=== PATIENT | female | born 1960 | race Caucasian/White ===

== ENCOUNTER 2018-09-23 12:46 | Emergency (ER) | payer OTHER, SELFPAY ==
[2018-09-23 13:01] VITALS: BP 139/86; PULSE 84; RESP 20; TEMP 37.2; O2SAT 99
--- NOTE | 2018-09-23 13:10 | ED.ABDPAIN ---
HPI - Abdominal Pain <LYNDSAY Lanier - Last Filed: 09/23/18 21:51> General Chief Complaint: Abdominal Pain Stated Complaint: bloating, terrible abd rt sided pain Time Seen by Provider: 09/23/18 13:10 Source: patient Mode of arrival: ambulatory Limitations: no limitations History of Present Illness HPI narrative: 58-year-old female with history of hyperlipidemia and is an everyday smoker here for complaint of pain into her right upper quadrant and also to her bilateral lower quadrants for the past week. She was concerned for pulled muscle however symptoms have not resolved. Her last bowel movement was a couple of days ago. She does feel like she may be constipated as well. She denies any fevers. No urinary symptoms. Positive p.o. intake. She denies any trauma to the abdomen. She was seen at primary care office today and was sent to the emergency room for further evaluation. she denies any stressors or relievers of her discomfort. Related Data Home Medications Medication Instructions Recorded Confirmed aspirin 81 mg PO QDAY #0 05/14/13 09/23/18 Fish Oil 1 dose PO DAILY 09/23/18 09/23/18 glucosamine zeng 2KCl-chondroit 1 dose PO DAILY 09/23/18 09/23/18 [Glucosamine Sulf-Chondroitin] multivitamin 1 tab PO DAILY 09/23/18 09/23/18 simvastatin 10 mg PO QPM 09/23/18 09/23/18 Previous Rx's Medication Instructions Recorded estradiol 0.05 mg/24 hr weekly 1 patch TOPICAL QWEEK #12 patch 06/01/18 transdermal patch ciprofloxacin HCl 500 mg PO BID #14 tab 09/23/18 hydrocodone-acetaminophen 1 tab PO Q4-6H PRN #15 tab 09/23/18 metronidazole 500 mg PO TID #21 tab 09/23/18 nicotine 1 patch TRANSDERMAL DAILY #56 patch 09/23/18 ondansetron 4 mg PO Q6-8H PRN #10 tab 09/23/18 Allergies Allergy/AdvReac Type Severity Reaction Status Date / Time No Known Drug Allergies Allergy Unverified 05/07/18 14:24 Review of Systems <LYNDSAY Lanier - Last Filed: 09/23/18 21:51> Review of Systems All systems reviewed & are unremarkable except as noted in HPI and below Constitutional Denies chills, Denies fever(s), Denies lethargy and Denies weakness Eyes Denies change in vision, Denies eye discharge, Denies irritation and Denies loss of vision ENT Ears, Nose, Mouth, and Throat: Denies change in voice, Denies neck pain and Denies sore throat Cardiovascular Denies chest pain, Denies irregular heart rhythm, Denies lightheadedness, Denies palpitations, Denies dyspnea, Denies dyspnea on exertion and Denies orthopnea Respiratory Denies cough, Denies dyspnea, Denies dyspnea on exertion and Denies wheezing Gastrointestinal Gastrointestinal: Reports abdominal pain and Reports constipation Genitourinary Denies hematuria, Denies flank pain, Denies urinary incontinence and Denies urinary urgency Musculoskeletal Denies neck pain Integumentary/Breasts Denies pruritus, Denies erythema, Denies rash and Denies wounds Neurologic Denies loss of vision and Denies weakness Endocrine Denies palpitations Hematologic/Lymphatic Denies easy bruising Allergic/Immunologic Denies wheezing Exam <LYNDSAY Lanier - Last Filed: 09/23/18 21:51> Initial Vital Signs Initial Vital Signs: Vital Signs Temperature 99.0 F 09/23/18 13:01 Pulse Rate 84 09/23/18 13:01 Respiratory Rate 20 09/23/18 13:01 Blood Pressure 139/86 09/23/18 13:01 Pulse Oximetry 99 09/23/18 13:01 Const General: cooperative and well developed Nutritional Appearance: well nourished Orientation: alert, awake, oriented x3 and not confused [facility] Mouth: oral mucosae normal and moist mucous membranes Eyes Conjunctivae: conjunctivae normal Sclera: sclerae normal Pupils: PERRL EOM: EOM intact bilaterally Resp Effort & Inspection: normal respiratory effort, able to speak in complete sentences, no respiratory distress and no use of accessory muscles Auscultation: clear to auscultation bilaterally, no rales, no rhonchi and no wheezes Cardio Rate: regular rate Rhythm: regular rhythm Heart Sounds: no click, no gallops, no murmurs and no rubs Pulses: normal peripheral pulses GI Inspection: non-distended Palpation: soft, no hepatosplenomegaly, No guarding, No pulsatile mass and tender Auscultation: normal bowel sounds Other: Tenderness on palpation to the right upper quadrant. Slight discomfort on palpation to bilateral lower quadrants. General: No CVA tenderness Skin General: no rashes or lesions noted, No jaundice and No petechiae Neuro General: alert, oriented x3, gait normal and no focal motor deficits Speech: speech normal <Taiwo Canales DO - Last Filed: 09/27/18 07:12> Initial Vital Signs Initial Vital Signs: Vital Signs Temperature 99.0 F 09/23/18 13:01 Pulse Rate 84 09/23/18 13:01 Respiratory Rate 20 09/23/18 13:01 Blood Pressure 139/86 09/23/18 13:01 Pulse Oximetry 99 09/23/18 13:01 Course <LYNDSAY Lanier - Last Filed: 09/23/18 21:51> Orders Ordered: Discontinued Medications Hydromorphone HCl (Dilaudid) 0.5 mg IV NOW ONE Stop: 09/23/18 13:17 Last Admin: 09/23/18 14:39 Dose: 0.5 mg Sodium Chloride (Normal Saline 0.9%) 1,000 mls @ 150 mls/hr IV CONT SANDEEP Last Infusion: 09/23/18 17:15 Dose: 0 mls/hr Admin: 09/23/18 14:39 Dose: 150 mls/hr Piperacillin/Tazobactam/Dextrose (Zosyn) 3.375 gm in 50 mls @ 100 mls/hr IV NOW ONE Stop: 09/23/18 16:11 Last Infusion: 09/23/18 16:21 Dose: 0 mls/hr Admin: 09/23/18 15:51 Dose: 100 mls/hr Ondansetron HCl (Zofran) 4 mg IV NOW ONE Stop: 09/23/18 13:17 Last Admin: 09/23/18 14:40 Dose: 4 mg Vital Signs - 8 hr 09/23/18 14:24 09/23/18 16:49 Pulse Rate 81 79 Respiratory Rate 16 16 Blood Pressure [Right Arm] 126/93 H 112/82 Pulse Oximetry 100 <Taiwo Canales DO - Last Filed: 09/27/18 07:12> Orders Ordered: Discontinued Medications Hydromorphone HCl (Dilaudid) 0.5 mg IV NOW ONE Stop: 09/23/18 13:17 Last Admin: 09/23/18 14:39 Dose: 0.5 mg Sodium Chloride (Normal Saline 0.9%) 1,000 mls @ 150 mls/hr IV CONT SANDEEP Last Infusion: 09/23/18 17:15 Dose: 0 mls/hr Admin: 09/23/18 14:39 Dose: 150 mls/hr Piperacillin/Tazobactam/Dextrose (Zosyn) 3.375 gm in 50 mls @ 100 mls/hr IV NOW ONE Stop: 09/23/18 16:11 Last Infusion: 09/23/18 16:21 Dose: 0 mls/hr Admin: 09/23/18 15:51 Dose: 100 mls/hr Ondansetron HCl (Zofran) 4 mg IV NOW ONE Stop: 09/23/18 13:17 Last Admin: 09/23/18 14:40 Dose: 4 mg Vital Signs - 8 hr 09/23/18 14:24 09/23/18 16:49 Pulse Rate 81 79 Respiratory Rate 16 16 Blood Pressure [Right Arm] 126/93 H 112/82 Pulse Oximetry 100 MDM - Abdominal Pain <LYNDSAY Lanier - Last Filed: 09/23/18 21:51> Lab Data Result diagrams: 09/23/18 14:20 09/23/18 14:20 Lab Results 09/23/18 09/23/18 09/23/18 Range/Units 14:20 14:20 14:20 WBC 9.9 (4.5-11.0) X10^3/uL RBC 4.90 (4.0-5.2) X10^6/uL Hgb 15.0 (12.0-16.0) g/dL Hct 44.1 (36-46) % MCV 90.1 (80-100) fL MCH 30.6 (26-34) PG MCHC 33.9 (30-36) % RDW 12.3 (11.6-14.8) % Plt Count 321 (150-400) X10^3/uL Neut % (Auto) 61.6 (50-75) % Lymph % (Auto) 30.7 (25-40) % Richardson % (Auto) 4.9 (3-14) % Eos % (Auto) 2.0 (2-4) % Baso % (Auto) 0.8 (0-2) % Neut # (Auto) 6100 H (5861-6370) /uL Sodium 144 (137-145) mmol/L Potassium 4.1 (3.4-5.1) mmol/L Chloride 104 (98-107) mmol/L Carbon Dioxide 29 (22-32) mmol/L BUN 14 (7-17) mg/dL Creatinine 0.60 (0.52-1.04) mg/dL Estimated GFR > 60.0 (>60) mL/min BUN/Creatinine Ratio 23.3 H (6-22) Glucose 89 (70-100) mg/dL Lactate (0.7-2.1) mmol/L Calcium 9.2 (8.4-10.2) mg/dL Total Bilirubin 0.4 (0.2-1.3) mg/dL AST 27 (14-36) IU/L ALT 26 (9-52) IU/L Alkaline Phosphatase 69 (38-126) U/L Total Protein 7.5 (6.3-8.2) g/dL Albumin 4.4 (3.5-5.0) g/dL Globulin 3.1 (1.7-4.1) g/dL Albumin/Globulin Ratio 1.4 (1.0-2.8) Lipase 47 (23-300) U/L Procalcitonin < 0.05 (<0.5) ng/mL Urine RBC (0-5/HPF) Urine WBC (0-5/HPF) Ur Squamous Epith Cells Urine Bacteria (None) Ur Culture Indicated? Micro UA Comment 09/23/18 09/23/18 Range/Units 16:08 Unknown WBC (4.5-11.0) X10^3/uL RBC (4.0-5.2) X10^6/uL Hgb (12.0-16.0) g/dL Hct (36-46) % MCV (80-100) fL MCH (26-34) PG MCHC (30-36) % RDW (11.6-14.8) % Plt Count (150-400) X10^3/uL Neut % (Auto) (50-75) % Lymph % (Auto) (25-40) % Richardson % (Auto) (3-14) % Eos % (Auto) (2-4) % Baso % (Auto) (0-2) % Neut # (Auto) (6009-7867) /uL Sodium (137-145) mmol/L Potassium (3.4-5.1) mmol/L Chloride (98-107) mmol/L Carbon Dioxide (22-32) mmol/L BUN (7-17) mg/dL Creatinine (0.52-1.04) mg/dL Estimated GFR (>60) mL/min BUN/Creatinine Ratio (6-22) Glucose (70-100) mg/dL Lactate < 0.5 L (0.7-2.1) mmol/L Calcium (8.4-10.2) mg/dL Total Bilirubin (0.2-1.3) mg/dL AST (14-36) IU/L ALT (9-52) IU/L Alkaline Phosphatase (38-126) U/L Total Protein (6.3-8.2) g/dL Albumin (3.5-5.0) g/dL Globulin (1.7-4.1) g/dL Albumin/Globulin Ratio (1.0-2.8) Lipase (23-300) U/L Procalcitonin (<0.5) ng/mL Urine RBC 5-10/hpf H (0-5/HPF) Urine WBC 0-1/hpf (0-5/HPF) Ur Squamous Epith Cells 1-5 /hpf Urine Bacteria Few (2-10) H (None) Ur Culture Indicated? Cult not indicated Micro UA Comment Not Reportable Point of care testing: Urine Dip Bedside Urine Glucose Negative Bedside Urine Bilirubin - Negative Bedside Urine Ketone +/- 5 Urine Specific [place] 1.030 Bedside Urine Occult Blood ++ Bedside Urine pH 6.0 Bedside Urine Protein - Negative Bedside Urine Urobilinogen - Negative Bedside Urine Nitrite - Negative Bedside Urine Leukocytes - Negative Esterase Imaging Data US - abdomen: Radiologist's impression: [address] [address] Ultrasound Report Signed Patient: Melina Sal [facility]#: [id number] : 9Acct:[id number] Age/Sex: 58 / FDate of Service: 09/23/18 Loc: ED Accession Number: [id number] Procedure: US abdomen complete Ordering Provider: William Ames PROCEDURE: US ABDOMEN COMPLETE INDICATIONS: RIGHT UPPER QUADRANT PAIN TECHNIQUE: Real-time scanning was performed of the abdominal and retroperitoneal organs, with image documentation. COMPARISON: None. FINDINGS: Liver: Liver is normal in size and homogeneous in echotexture except for a small avascular 2.1 x 1.7 x 1.4 cm left hepatic lobe echogenic focus superiorly, consistent with hemangioma. Gallbladder: Contains a 8mm polyp. Biliary ducts: Intrahepatic bile ducts are non-dilated. Extrahepatic bile duct caliber measures 6.4 mm. Normal is 6-7 mm or less in diameter, or 10 mm or less post-cholecystectomy. Pancreas: Visualized portions of the pancreas are sonographically normal. Spleen: Spleen is normal in size and homogeneous in echotexture. Kidneys: Kidneys are normal in size and echotexture. Right kidney measures 14.5 cm long; left kidney measures 12.5 cm long. No hydronephrosis or nephrolithiasis. No solid masses. Numerous cysts are present involving the kidneys, the right kidney containing a 6.5 cm cyst in the left containing a 4.5 cm cyst as largest examples. Aorta: Visualized aorta is normal in caliber at less than 3 cm. Iliacs: Proximal common iliac arteries are normal in caliber at less than 2.5 cm. IVC: Intrahepatic inferior vena cava is patent. Miscellaneous: No free abdominal fluid. IMPRESSION: Echogenic 2.1 cm maximal dimension the left hepatic lobe superior structure is most likely a hemangioma. A followup ultrasound in 6 months is recommended. A CT today's scheduled. Source of current right upper quadrant pain is not seen but there is a 8mm polyp that should be further assessed in 6 months by ultrasound also. Dictated by: Maciel Alberto M.D. on 09/23/2018 at 13:59 Approved by: Maciel Alberto M.D. on 09/23/2018 at 14:03 CT scan - abdomen: Radiologist's impression: [facility] [address] [place] [address] CT Scan Report Signed Patient: Melina Sal [facility]#: [id number] : 9Acct:[id number] Age/Sex: 58 / FDate of Service: 09/23/18 Loc: ED Accession Number: [id number] Procedure: CT abdomen pelvis w con Ordering Provider: William Ames PROCEDURE: CT ABDOMEN PELVIS W CON INDICATIONS: pain to right upper quadrant and bilateral lower quadrants TECHNIQUE: After the administration of intravenous contrast, 5 mm thick sections acquired from the diaphragm to the symphysis. 5 mm coronal and sagittal reformats were acquired. For radiation dose reduction, the following was used: automated exposure control, adjustment of mA and/or kV according to patient size. COMPARISON: [facility], [place], US ABDOMEN COMPLETE, 09/23/2018, 13:30. [facility], [place], ABDOMEN/PELVIS WITH CONTRAST, 12/16/2014, 9:41. FINDINGS: Image quality: Excellent. ABDOMEN: Lung bases: Lung bases are clear. Heart size is normal. Solid organs: Liver is normal in size and overall enhancement. A hypervascular lesion is present within the superior aspect of the left hepatic lobe consistent with a hepatic hemangioma. This is unchanged when compared with the study dated 12/16/14. A 2 mm diameter calculus is present within the gallbladder fundus. The gallbladder is otherwise unremarkable. The polyp described on ultrasound from earlier today is not visualized on CT. No pericholecystic fluid or wall thickening. Biliary system is non dilated. Pancreas enhances normally. Spleen is normal in size and enhancement. No adrenal nodules. Kidneys demonstrate normal size and enhancement, without hydronephrosis. Bilateral low-density exophytic cystic lesions are present within the kidneys. A 1.3 cm diameter, centrally cystic lesion with questionable nodular enhancement along the wall is present within the lower pole of the right kidney (series 2, image 41). Peritoneum and bowel: Bowel loops demonstrate normal overall wall thickness and caliber. There are extensive diverticular outpouchings throughout the sigmoid colon. A lobulated rim-enhancing fluid collection or fluid-filled diverticulum is present within the mid sigmoid colon (series 2, image 60). There is marked, focal pericolonic fat stranding in this region. No pneumoperitoneum. No other discrete fluid collections. Nodes and vessels: No retroperitoneal or mesenteric adenopathy by size criteria. Aorta and inferior vena cava are normal in size. There are scattered atheromatous calcifications throughout the aorta and iliac arteries bilaterally. Miscellaneous: No ventral hernias. PELVIS: Genitourinary: Bladder wall thickness is normal. Miscellaneous: No inguinal hernias or adenopathy. Bones: No suspicious bony lesions. No vertebral body compression fractures. IMPRESSION: 1. Acute diverticulitis. There is a questionable contained perforation versus fluid filled infected diverticulum as described above. No other abscess or pneumoperitoneum. Colonoscopy is recommended with resolution of the patient's symptoms to ensure there is no underlying colonic neoplasm. 2. Irregularly marginated renal cyst in the right lower pole with nodular rim enhancement. Neoplasm cannot be excluded. Nonemergent renal mass protocol CT is recommended to further characterize this finding. These findings were discussed with LYNDSAY Lanier at 3:35 PM on 09/23/18. Dictated by: Nicki Blake M.D. on 09/23/2018 at 15:30 Approved by: Nicki Blake M.D. on 09/23/2018 at 15:40 MDM Narrative Medical decision making narrative: CBC Chem panel and lipase were obtained were unremarkable. Ultrasound of the right upper quadrant shows a follow-up of approximately 8 mm in size in side the gallbladder. Common bile duct was unremarkable. Also a 2 cm area consistent with hemangioma is seen to the left hepatic lobe. CT of the abdomen shows diverticulitis to the sigmoid colon area. A lobulated area of fluid collection presents as either a abscess secondary to a small perforation or fluid-filled diverticulum. CT also shows area of irregular renal cyst to the right lower pole of 1.3 cm is seen. discussed case with Dr. Chance General surgery who evaluated patient and feels that patient is safe to go home on oral antibiotics. She was given Zosyn here in the emergency room she is placed on ciprofloxacin and metronidazole. clear liquid diet. Follow up with primary care provider in the next couple days for re-evaluation. Follow up with eyelid surgery next week for re-evaluation And monitoring of hemangioma, renal cyst and gallbladder polyp. patient will need colonoscopy in the near future. for any worsening symptoms return emergency room. <Taiwo Canales DO - Last Filed: 09/27/18 07:12> Lab Data Lab Results 09/23/18 09/23/18 09/23/18 Range/Units 14:20 14:20 14:20 WBC 9.9 (4.5-11.0) X10^3/uL RBC 4.90 (4.0-5.2) X10^6/uL Hgb 15.0 (12.0-16.0) g/dL Hct 44.1 (36-46) % MCV 90.1 (80-100) fL MCH 30.6 (26-34) PG MCHC 33.9 (30-36) % RDW 12.3 (11.6-14.8) % Plt Count 321 (150-400) X10^3/uL Neut % (Auto) 61.6 (50-75) % Lymph % (Auto) 30.7 (25-40) % Richardson % (Auto) 4.9 (3-14) % Eos % (Auto) 2.0 (2-4) % Baso % (Auto) 0.8 (0-2) % Neut # (Auto) 6100 H (8443-0222) /uL Sodium 144 (137-145) mmol/L Potassium 4.1 (3.4-5.1) mmol/L Chloride 104 (98-107) mmol/L Carbon Dioxide 29 (22-32) mmol/L BUN 14 (7-17) mg/dL Creatinine 0.60 (0.52-1.04) mg/dL Estimated GFR > 60.0 (>60) mL/min BUN/Creatinine Ratio 23.3 H (6-22) Glucose 89 (70-100) mg/dL Lactate (0.7-2.1) mmol/L Calcium 9.2 (8.4-10.2) mg/dL Total Bilirubin 0.4 (0.2-1.3) mg/dL AST 27 (14-36) IU/L ALT 26 (9-52) IU/L Alkaline Phosphatase 69 (38-126) U/L Total Protein 7.5 (6.3-8.2) g/dL Albumin 4.4 (3.5-5.0) g/dL Globulin 3.1 (1.7-4.1) g/dL Albumin/Globulin Ratio 1.4 (1.0-2.8) Lipase 47 (23-300) U/L Procalcitonin < 0.05 (<0.5) ng/mL Urine RBC (0-5/HPF) Urine WBC (0-5/HPF) Ur Squamous Epith Cells Urine Bacteria (None) Ur Culture Indicated? Micro UA Comment 09/23/18 09/23/18 Range/Units 16:08 Unknown WBC (4.5-11.0) X10^3/uL RBC (4.0-5.2) X10^6/uL Hgb (12.0-16.0) g/dL Hct (36-46) % MCV (80-100) fL MCH (26-34) PG MCHC (30-36) % RDW (11.6-14.8) % Plt Count (150-400) X10^3/uL Neut % (Auto) (50-75) % Lymph % (Auto) (25-40) % Richardson % (Auto) (3-14) % Eos % (Auto) (2-4) % Baso % (Auto) (0-2) % Neut # (Auto) (3676-6037) /uL Sodium (137-145) mmol/L Potassium (3.4-5.1) mmol/L Chloride (98-107) mmol/L Carbon Dioxide (22-32) mmol/L BUN (7-17) mg/dL Creatinine (0.52-1.04) mg/dL Estimated GFR (>60) mL/min BUN/Creatinine Ratio (6-22) Glucose (70-100) mg/dL Lactate < 0.5 L (0.7-2.1) mmol/L Calcium (8.4-10.2) mg/dL Total Bilirubin (0.2-1.3) mg/dL AST (14-36) IU/L ALT (9-52) IU/L Alkaline Phosphatase (38-126) U/L Total Protein (6.3-8.2) g/dL Albumin (3.5-5.0) g/dL Globulin (1.7-4.1) g/dL Albumin/Globulin Ratio (1.0-2.8) Lipase (23-300) U/L Procalcitonin (<0.5) ng/mL Urine RBC 5-10/hpf H (0-5/HPF) Urine WBC 0-1/hpf (0-5/HPF) Ur Squamous Epith Cells 1-5 /hpf Urine Bacteria Few (2-10) H (None) Ur Culture Indicated? Cult not indicated Micro UA Comment Not Reportable Point of care testing: Urine Dip Bedside Urine Glucose Negative Bedside Urine Bilirubin - Negative Bedside Urine Ketone +/- 5 Urine Specific [place] 1.030 Bedside Urine Occult Blood ++ Bedside Urine pH 6.0 Bedside Urine Protein - Negative Bedside Urine Urobilinogen - Negative Bedside Urine Nitrite - Negative Bedside Urine Leukocytes - Negative Esterase Discharge Plan Departure Patient Disposition: Home Clinical Impression: Diverticulitis large intestine Discharge Date/Time: 09/23/18 17:16 Interventions: ED Discharge Assessment Last Done: 09/23/18 17:14 Instructions: Diverticulitis Activity Restrictions/Additional Instructions: ultrasound of the abdomen shows a polyp to the gallbladder and a hemangioma to the left lobe of the liver otherwise no acute findings are seen. These will need to be further evaluated to ensure they are stable. CT of the abdomen shows diverticulitis which is infection of the descending colon. You have been placed on antibiotics use as directed. Clear liquid diet and till cleared by surgery. Follow up with primary care provider in the next couple days for re-evaluation. Follow up with surgery office next week. CT also shows a cyst to the right kidney area that will need to be further evaluated as well. You will need to have a CT of the kidneys. colonoscopy will be needed here in in the near future for further evaluation as well. [place] is prescribed for pain and use as directed. Zofran is prescribed for nausea also use as directed. No driving while on the pain medication. use nicotine patches as directed to help with smoking cessation. Prescriptions: New hydrocodone-acetaminophen 5-325 mg tablet 1 tab PO Q4-6H PRN (Reason: pain) Qty: 15 RF: 0 metronidazole 500 mg tablet 500 mg PO TID Qty: 21 RF: 0 ciprofloxacin HCl 500 mg tablet 500 mg PO BID Qty: 14 RF: 0 ondansetron 4 mg tablet,disintegrating 4 mg PO Q6-8H PRN (Reason: nausea and vomiting) Qty: 10 RF: 0 nicotine 21-14-7 mg/24 hr patch, TD daily, sequential 1 patch Transdermal DAILY Qty: 56 RF: 0 No Action aspirin 81 MG tablet,delayed release (DR/EC) 81 mg PO QDAY Qty: 0 RF: 0 estradiol [[place]] 0.05 mg/24 hr patch weekly 1 patch Topical QWEEK Qty: 12 RF: 3 simvastatin 10 MG tablet 10 mg PO QPM RF: 0 multivitamin Tablet 1 tab PO DAILY RF: 0 glucosamine zeng 2KCl-chondroit [Glucosamine Sulf-Chondroitin] 500-400 mg Capsule 1 dose PO DAILY RF: 0 Fish Oil 1 dose PO DAILY RF: 0 Referrals: [facility] [Provider Group] Sammy Ruiz MD [Primary Care Provider] - <Taiwo Canales DO - Last Filed: 09/27/18 07:12> Cosign ED Attending Cosignature Attestation: I was available for consultation during this patient's emergency department encounter
--- NOTE | 2018-09-23 13:20 | DI.US.S_ITS ---
PROCEDURE: US ABDOMEN COMPLETE INDICATIONS: RIGHT UPPER QUADRANT PAIN TECHNIQUE: Real-time scanning was performed of the abdominal and retroperitoneal organs, with image documentation. COMPARISON: None. FINDINGS: Liver: Liver is normal in size and homogeneous in echotexture except for a small avascular 2.1 x 1.7 x 1.4 cm left hepatic lobe echogenic focus superiorly, consistent with hemangioma. Gallbladder: Contains a 8mm polyp. Biliary ducts: Intrahepatic bile ducts are non-dilated. Extrahepatic bile duct caliber measures 6.4 mm. Normal is 6-7 mm or less in diameter, or 10 mm or less post-cholecystectomy. Pancreas: Visualized portions of the pancreas are sonographically normal. Spleen: Spleen is normal in size and homogeneous in echotexture. Kidneys: Kidneys are normal in size and echotexture. Right kidney measures 14.5 cm long; left kidney measures 12.5 cm long. No hydronephrosis or nephrolithiasis. No solid masses. Numerous cysts are present involving the kidneys, the right kidney containing a 6.5 cm cyst in the left containing a 4.5 cm cyst as largest examples. Aorta: Visualized aorta is normal in caliber at less than 3 cm. Iliacs: Proximal common iliac arteries are normal in caliber at less than 2.5 cm. IVC: Intrahepatic inferior vena cava is patent. Miscellaneous: No free abdominal fluid. IMPRESSION: Echogenic 2.1 cm maximal dimension the left hepatic lobe superior structure is most likely a hemangioma. A followup ultrasound in 6 months is recommended. A CT today's scheduled. Source of current right upper quadrant pain is not seen but there is a 8mm polyp that should be further assessed in 6 months by ultrasound also. Dictated by: Maciel Alberto M.D. on 09/23/2018 at 13:59 Approved by: Maciel Alberto M.D. on 09/23/2018 at 14:03
--- NOTE | 2018-09-23 13:51 | ED_ITS ---
HPI - Abdominal Pain <LYNDSAY Lanier - Last Filed: 09/23/18 21:51> General Chief Complaint: Abdominal Pain Stated Complaint: bloating, terrible abd rt sided pain Time Seen by Provider: 09/23/18 13:10 Source: patient Mode of arrival: ambulatory Limitations: no limitations History of Present Illness HPI narrative: 58-year-old female with history of hyperlipidemia and is an everyday smoker here for complaint of pain into her right upper quadrant and also to her bilateral lower quadrants for the past week. She was concerned for pulled muscle however symptoms have not resolved. Her last bowel movement was a couple of days ago. She does feel like she may be constipated as well. She denies any fevers. No urinary symptoms. Positive p.o. intake. She denies any trauma to the abdomen. She was seen at primary care office today and was sent to the emergency room for further evaluation. she denies any stressors or relievers of her discomfort. Related Data Home Medications Medication Instructions Recorded Confirmed aspirin 81 mg PO QDAY #0 05/14/13 09/23/18 Fish Oil 1 dose PO DAILY 09/23/18 09/23/18 glucosamine zeng 2KCl-chondroit 1 dose PO DAILY 09/23/18 09/23/18 [Glucosamine Sulf-Chondroitin] multivitamin 1 tab PO DAILY 09/23/18 09/23/18 simvastatin 10 mg PO QPM 09/23/18 09/23/18 Previous Rx's Medication Instructions Recorded estradiol 0.05 mg/24 hr weekly 1 patch TOPICAL QWEEK #12 patch 06/01/18 transdermal patch ciprofloxacin HCl 500 mg PO BID #14 tab 09/23/18 hydrocodone-acetaminophen 1 tab PO Q4-6H PRN #15 tab 09/23/18 metronidazole 500 mg PO TID #21 tab 09/23/18 nicotine 1 patch TRANSDERMAL DAILY #56 patch 09/23/18 ondansetron 4 mg PO Q6-8H PRN #10 tab 09/23/18 Allergies Allergy/AdvReac Type Severity Reaction Status Date / Time No Known Drug Allergies Allergy Unverified 05/07/18 14:24 Review of Systems <LYNDSAY Lanier - Last Filed: 09/23/18 21:51> Review of Systems All systems reviewed & are unremarkable except as noted in HPI and below Constitutional Denies chills, Denies fever(s), Denies lethargy and Denies weakness Eyes Denies change in vision, Denies eye discharge, Denies irritation and Denies loss of vision ENT Ears, Nose, Mouth, and Throat: Denies change in voice, Denies neck pain and Denies sore throat Cardiovascular Denies chest pain, Denies irregular heart rhythm, Denies lightheadedness, Denies palpitations, Denies dyspnea, Denies dyspnea on exertion and Denies orthopnea Respiratory Denies cough, Denies dyspnea, Denies dyspnea on exertion and Denies wheezing Gastrointestinal Gastrointestinal: Reports abdominal pain and Reports constipation Genitourinary Denies hematuria, Denies flank pain, Denies urinary incontinence and Denies urinary urgency Musculoskeletal Denies neck pain Integumentary/Breasts Denies pruritus, Denies erythema, Denies rash and Denies wounds Neurologic Denies loss of vision and Denies weakness Endocrine Denies palpitations Hematologic/Lymphatic Denies easy bruising Allergic/Immunologic Denies wheezing Exam <LYNDSAY Lanier - Last Filed: 09/23/18 21:51> Initial Vital Signs Initial Vital Signs: Vital Signs Temperature 99.0 F 09/23/18 13:01 Pulse Rate 84 09/23/18 13:01 Respiratory Rate 20 09/23/18 13:01 Blood Pressure 139/86 09/23/18 13:01 Pulse Oximetry 99 09/23/18 13:01 Const General: cooperative and well developed Nutritional Appearance: well nourished Orientation: alert, awake, oriented x3 and not confused [facility] Mouth: oral mucosae normal and moist mucous membranes Eyes Conjunctivae: conjunctivae normal Sclera: sclerae normal Pupils: PERRL EOM: EOM intact bilaterally Resp Effort & Inspection: normal respiratory effort, able to speak in complete sentences, no respiratory distress and no use of accessory muscles Auscultation: clear to auscultation bilaterally, no rales, no rhonchi and no wheezes Cardio Rate: regular rate Rhythm: regular rhythm Heart Sounds: no click, no gallops, no murmurs and no rubs Pulses: normal peripheral pulses GI Inspection: non-distended Palpation: soft, no hepatosplenomegaly, No guarding, No pulsatile mass and tender Auscultation: normal bowel sounds Other: Tenderness on palpation to the right upper quadrant. Slight discomfort on palpation to bilateral lower quadrants. General: No CVA tenderness Skin General: no rashes or lesions noted, No jaundice and No petechiae Neuro General: alert, oriented x3, gait normal and no focal motor deficits Speech: speech normal <Taiwo Canales DO - Last Filed: 09/27/18 07:12> Initial Vital Signs Initial Vital Signs: Vital Signs Temperature 99.0 F 09/23/18 13:01 Pulse Rate 84 09/23/18 13:01 Respiratory Rate 20 09/23/18 13:01 Blood Pressure 139/86 09/23/18 13:01 Pulse Oximetry 99 09/23/18 13:01 Course <LYNDSAY Lanier - Last Filed: 09/23/18 21:51> Orders Ordered: Discontinued Medications Hydromorphone HCl (Dilaudid) 0.5 mg IV NOW ONE Stop: 09/23/18 13:17 Last Admin: 09/23/18 14:39 Dose: 0.5 mg Sodium Chloride (Normal Saline 0.9%) 1,000 mls @ 150 mls/hr IV CONT SANDEEP Last Infusion: 09/23/18 17:15 Dose: 0 mls/hr Admin: 09/23/18 14:39 Dose: 150 mls/hr Piperacillin/Tazobactam/Dextrose (Zosyn) 3.375 gm in 50 mls @ 100 mls/hr IV NOW ONE Stop: 09/23/18 16:11 Last Infusion: 09/23/18 16:21 Dose: 0 mls/hr Admin: 09/23/18 15:51 Dose: 100 mls/hr Ondansetron HCl (Zofran) 4 mg IV NOW ONE Stop: 09/23/18 13:17 Last Admin: 09/23/18 14:40 Dose: 4 mg Vital Signs - 8 hr 09/23/18 14:24 09/23/18 16:49 Pulse Rate 81 79 Respiratory Rate 16 16 Blood Pressure [Right Arm] 126/93 H 112/82 Pulse Oximetry 100 <Taiwo Canales DO - Last Filed: 09/27/18 07:12> Orders Ordered: Discontinued Medications Hydromorphone HCl (Dilaudid) 0.5 mg IV NOW ONE Stop: 09/23/18 13:17 Last Admin: 09/23/18 14:39 Dose: 0.5 mg Sodium Chloride (Normal Saline 0.9%) 1,000 mls @ 150 mls/hr IV CONT SANDEEP Last Infusion: 09/23/18 17:15 Dose: 0 mls/hr Admin: 09/23/18 14:39 Dose: 150 mls/hr Piperacillin/Tazobactam/Dextrose (Zosyn) 3.375 gm in 50 mls @ 100 mls/hr IV NOW ONE Stop: 09/23/18 16:11 Last Infusion: 09/23/18 16:21 Dose: 0 mls/hr Admin: 09/23/18 15:51 Dose: 100 mls/hr Ondansetron HCl (Zofran) 4 mg IV NOW ONE Stop: 09/23/18 13:17 Last Admin: 09/23/18 14:40 Dose: 4 mg Vital Signs - 8 hr 09/23/18 14:24 09/23/18 16:49 Pulse Rate 81 79 Respiratory Rate 16 16 Blood Pressure [Right Arm] 126/93 H 112/82 Pulse Oximetry 100 MDM - Abdominal Pain <LYNDSAY Lanier - Last Filed: 09/23/18 21:51> Lab Data Result diagrams: 09/23/18 14:20 09/23/18 14:20 Lab Results 09/23/18 09/23/18 09/23/18 Range/Units 14:20 14:20 14:20 WBC 9.9 (4.5-11.0) X10^3/uL RBC 4.90 (4.0-5.2) X10^6/uL Hgb 15.0 (12.0-16.0) g/dL Hct 44.1 (36-46) % MCV 90.1 (80-100) fL MCH 30.6 (26-34) PG MCHC 33.9 (30-36) % RDW 12.3 (11.6-14.8) % Plt Count 321 (150-400) X10^3/uL Neut % (Auto) 61.6 (50-75) % Lymph % (Auto) 30.7 (25-40) % Hendricks % (Auto) 4.9 (3-14) % Eos % (Auto) 2.0 (2-4) % Baso % (Auto) 0.8 (0-2) % Neut # (Auto) 6100 H (7735-3112) /uL Sodium 144 (137-145) mmol/L Potassium 4.1 (3.4-5.1) mmol/L Chloride 104 (98-107) mmol/L Carbon Dioxide 29 (22-32) mmol/L BUN 14 (7-17) mg/dL Creatinine 0.60 (0.52-1.04) mg/dL Estimated GFR > 60.0 (>60) mL/min BUN/Creatinine Ratio 23.3 H (6-22) Glucose 89 (70-100) mg/dL Lactate (0.7-2.1) mmol/L Calcium 9.2 (8.4-10.2) mg/dL Total Bilirubin 0.4 (0.2-1.3) mg/dL AST 27 (14-36) IU/L ALT 26 (9-52) IU/L Alkaline Phosphatase 69 (38-126) U/L Total Protein 7.5 (6.3-8.2) g/dL Albumin 4.4 (3.5-5.0) g/dL Globulin 3.1 (1.7-4.1) g/dL Albumin/Globulin Ratio 1.4 (1.0-2.8) Lipase 47 (23-300) U/L Procalcitonin < 0.05 (<0.5) ng/mL Urine RBC (0-5/HPF) Urine WBC (0-5/HPF) Ur Squamous Epith Cells Urine Bacteria (None) Ur Culture Indicated? Micro UA Comment 09/23/18 09/23/18 Range/Units 16:08 Unknown WBC (4.5-11.0) X10^3/uL RBC (4.0-5.2) X10^6/uL Hgb (12.0-16.0) g/dL Hct (36-46) % MCV (80-100) fL MCH (26-34) PG MCHC (30-36) % RDW (11.6-14.8) % Plt Count (150-400) X10^3/uL Neut % (Auto) (50-75) % Lymph % (Auto) (25-40) % Hendricks % (Auto) (3-14) % Eos % (Auto) (2-4) % Baso % (Auto) (0-2) % Neut # (Auto) (3665-9016) /uL Sodium (137-145) mmol/L Potassium (3.4-5.1) mmol/L Chloride (98-107) mmol/L Carbon Dioxide (22-32) mmol/L BUN (7-17) mg/dL Creatinine (0.52-1.04) mg/dL Estimated GFR (>60) mL/min BUN/Creatinine Ratio (6-22) Glucose (70-100) mg/dL Lactate < 0.5 L (0.7-2.1) mmol/L Calcium (8.4-10.2) mg/dL Total Bilirubin (0.2-1.3) mg/dL AST (14-36) IU/L ALT (9-52) IU/L Alkaline Phosphatase (38-126) U/L Total Protein (6.3-8.2) g/dL Albumin (3.5-5.0) g/dL Globulin (1.7-4.1) g/dL Albumin/Globulin Ratio (1.0-2.8) Lipase (23-300) U/L Procalcitonin (<0.5) ng/mL Urine RBC 5-10/hpf H (0-5/HPF) Urine WBC 0-1/hpf (0-5/HPF) Ur Squamous Epith Cells 1-5 /hpf Urine Bacteria Few (2-10) H (None) Ur Culture Indicated? Cult not indicated Micro UA Comment Not Reportable Point of care testing: Urine Dip Bedside Urine Glucose Negative Bedside Urine Bilirubin - Negative Bedside Urine Ketone +/- 5 Urine Specific Axis 1.030 Bedside Urine Occult Blood ++ Bedside Urine pH 6.0 Bedside Urine Protein - Negative Bedside Urine Urobilinogen - Negative Bedside Urine Nitrite - Negative Bedside Urine Leukocytes - Negative Esterase Imaging Data US - abdomen: Radiologist's impression: [address] [address] Ultrasound Report Signed Patient: Melina Sal [facility]#: [id number] : 9Acct:[id number] Age/Sex: 58 / FDate of Service: 09/23/18 Loc: ED Accession Number: [id number] Procedure: US abdomen complete Ordering Provider: William Ames PROCEDURE: US ABDOMEN COMPLETE INDICATIONS: RIGHT UPPER QUADRANT PAIN TECHNIQUE: Real-time scanning was performed of the abdominal and retroperitoneal organs, with image documentation. COMPARISON: None. FINDINGS: Liver: Liver is normal in size and homogeneous in echotexture except for a small avascular 2.1 x 1.7 x 1.4 cm left hepatic lobe echogenic focus superiorly, consistent with hemangioma. Gallbladder: Contains a 8mm polyp. Biliary ducts: Intrahepatic bile ducts are non-dilated. Extrahepatic bile duct caliber measures 6.4 mm. Normal is 6-7 mm or less in diameter, or 10 mm or less post-cholecystectomy. Pancreas: Visualized portions of the pancreas are sonographically normal. Spleen: Spleen is normal in size and homogeneous in echotexture. Kidneys: Kidneys are normal in size and echotexture. Right kidney measures 14.5 cm long; left kidney measures 12.5 cm long. No hydronephrosis or nephrolithiasis. No solid masses. Numerous cysts are present involving the kidneys, the right kidney containing a 6.5 cm cyst in the left containing a 4.5 cm cyst as largest examples. Aorta: Visualized aorta is normal in caliber at less than 3 cm. Iliacs: Proximal common iliac arteries are normal in caliber at less than 2.5 cm. IVC: Intrahepatic inferior vena cava is patent. Miscellaneous: No free abdominal fluid. IMPRESSION: Echogenic 2.1 cm maximal dimension the left hepatic lobe superior structure is most likely a hemangioma. A followup ultrasound in 6 months is recommended. A CT today's scheduled. Source of current right upper quadrant pain is not seen but there is a 8mm polyp that should be further assessed in 6 months by ultrasound also. Dictated by: Maciel Alberto M.D. on 09/23/2018 at 13:59 Approved by: Maciel Alberto M.D. on 09/23/2018 at 14:03 CT scan - abdomen: Radiologist's impression: [facility] [address] [place] [address] CT Scan Report Signed Patient: Melina Sal [facility]#: [id number] : 9Acct:[id number] Age/Sex: 58 / FDate of Service: 09/23/18 Loc: ED Accession Number: [id number] Procedure: CT abdomen pelvis w con Ordering Provider: William Ames PROCEDURE: CT ABDOMEN PELVIS W CON INDICATIONS: pain to right upper quadrant and bilateral lower quadrants TECHNIQUE: After the administration of intravenous contrast, 5 mm thick sections acquired from the diaphragm to the symphysis. 5 mm coronal and sagittal reformats were acquired. For radiation dose reduction, the following was used: automated exposure control, adjustment of mA and/or kV according to patient size. COMPARISON: [facility], US, US ABDOMEN COMPLETE, 09/23/2018, 13:30. [facility], CT, ABDOMEN/PELVIS WITH CONTRAST, 12/16/2014, 9:41. FINDINGS: Image quality: Excellent. ABDOMEN: Lung bases: Lung bases are clear. Heart size is normal. Solid organs: Liver is normal in size and overall enhancement. A hypervascular lesion is present within the superior aspect of the left hepatic lobe consistent with a hepatic hemangioma. This is unchanged when compared with the study dated 12/16/14. A 2 mm diameter calculus is present within the gallbladder fundus. The gallbladder is otherwise unremarkable. The polyp described on ultrasound from earlier today is not visualized on CT. No pericholecystic fluid or wall thickening. Biliary system is non dilated. Pancreas enhances normally. Spleen is normal in size and enhancement. No adrenal nodules. Kidneys demonstrate normal size and enhancement, without hydronephrosis. Bilateral low-density exophytic cystic lesions are present within the kidneys. A 1.3 cm diameter, centrally cystic lesion with questionable nodular enhancement along the wall is present within the lower pole of the right kidney (series 2, image 41). Peritoneum and bowel: Bowel loops demonstrate normal overall wall thickness and caliber. There are extensive diverticular outpouchings throughout the sigmoid colon. A lobulated rim-enhancing fluid collection or fluid-filled diverticulum is present within the mid sigmoid colon (series 2, image 60). There is marked, focal pericolonic fat stranding in this region. No pneumoperitoneum. No other discrete fluid collections. Nodes and vessels: No retroperitoneal or mesenteric adenopathy by size criteria. Aorta and inferior vena cava are normal in size. There are scattered atheromatous calcifications throughout the aorta and iliac arteries bilaterally. Miscellaneous: No ventral hernias. PELVIS: Genitourinary: Bladder wall thickness is normal. Miscellaneous: No inguinal hernias or adenopathy. Bones: No suspicious bony lesions. No vertebral body compression fractures. IMPRESSION: 1. Acute diverticulitis. There is a questionable contained perforation versus fluid filled infected diverticulum as described above. No other abscess or pneumoperitoneum. Colonoscopy is recommended with resolution of the patient's symptoms to ensure there is no underlying colonic neoplasm. 2. Irregularly marginated renal cyst in the right lower pole with nodular rim enhancement. Neoplasm cannot be excluded. Nonemergent renal mass protocol CT is recommended to further characterize this finding. These findings were discussed with LYNDSAY Lanier at 3:35 PM on 09/23/18. Dictated by: Nicki Blake M.D. on 09/23/2018 at 15:30 Approved by: Nicki Blake M.D. on 09/23/2018 at 15:40 MDM Narrative Medical decision making narrative: CBC Chem panel and lipase were obtained were unremarkable. Ultrasound of the right upper quadrant shows a follow-up of approximately 8 mm in size in side the gallbladder. Common bile duct was unremarkable. Also a 2 cm area consistent with hemangioma is seen to the left hepatic lobe. CT of the abdomen shows diverticulitis to the sigmoid colon area. A lobulated area of fluid collection presents as either a abscess secondary to a small perforation or fluid-filled diverticulum. CT also shows area of irregular renal cyst to the right lower pole of 1.3 cm is seen. discussed case with Dr. Chance General surgery who evaluated patient and feels that patient is safe to go home on oral antibiotics. She was given Zosyn here in the emergency room she is placed on ciprofloxacin and metronidazole. clear liquid diet. Follow up with primary care provider in the next couple days for re-evaluation. Follow up with eyelid surgery next week for re-evaluation And monitoring of hemangioma, renal cyst and gallbladder polyp. patient will need colonoscopy in the near future. for any worsening symptoms return emergency room. <Taiwo Canales DO - Last Filed: 09/27/18 07:12> Lab Data Lab Results 09/23/18 09/23/18 09/23/18 Range/Units 14:20 14:20 14:20 WBC 9.9 (4.5-11.0) X10^3/uL RBC 4.90 (4.0-5.2) X10^6/uL Hgb 15.0 (12.0-16.0) g/dL Hct 44.1 (36-46) % MCV 90.1 (80-100) fL MCH 30.6 (26-34) PG MCHC 33.9 (30-36) % RDW 12.3 (11.6-14.8) % Plt Count 321 (150-400) X10^3/uL Neut % (Auto) 61.6 (50-75) % Lymph % (Auto) 30.7 (25-40) % Hendricks % (Auto) 4.9 (3-14) % Eos % (Auto) 2.0 (2-4) % Baso % (Auto) 0.8 (0-2) % Neut # (Auto) 6100 H (3193-2154) /uL Sodium 144 (137-145) mmol/L Potassium 4.1 (3.4-5.1) mmol/L Chloride 104 (98-107) mmol/L Carbon Dioxide 29 (22-32) mmol/L BUN 14 (7-17) mg/dL Creatinine 0.60 (0.52-1.04) mg/dL Estimated GFR > 60.0 (>60) mL/min BUN/Creatinine Ratio 23.3 H (6-22) Glucose 89 (70-100) mg/dL Lactate (0.7-2.1) mmol/L Calcium 9.2 (8.4-10.2) mg/dL Total Bilirubin 0.4 (0.2-1.3) mg/dL AST 27 (14-36) IU/L ALT 26 (9-52) IU/L Alkaline Phosphatase 69 (38-126) U/L Total Protein 7.5 (6.3-8.2) g/dL Albumin 4.4 (3.5-5.0) g/dL Globulin 3.1 (1.7-4.1) g/dL Albumin/Globulin Ratio 1.4 (1.0-2.8) Lipase 47 (23-300) U/L Procalcitonin < 0.05 (<0.5) ng/mL Urine RBC (0-5/HPF) Urine WBC (0-5/HPF) Ur Squamous Epith Cells Urine Bacteria (None) Ur Culture Indicated? Micro UA Comment 09/23/18 09/23/18 Range/Units 16:08 Unknown WBC (4.5-11.0) X10^3/uL RBC (4.0-5.2) X10^6/uL Hgb (12.0-16.0) g/dL Hct (36-46) % MCV (80-100) fL MCH (26-34) PG MCHC (30-36) % RDW (11.6-14.8) % Plt Count (150-400) X10^3/uL Neut % (Auto) (50-75) % Lymph % (Auto) (25-40) % Hendricks % (Auto) (3-14) % Eos % (Auto) (2-4) % Baso % (Auto) (0-2) % Neut # (Auto) (7059-2505) /uL Sodium (137-145) mmol/L Potassium (3.4-5.1) mmol/L Chloride (98-107) mmol/L Carbon Dioxide (22-32) mmol/L BUN (7-17) mg/dL Creatinine (0.52-1.04) mg/dL Estimated GFR (>60) mL/min BUN/Creatinine Ratio (6-22) Glucose (70-100) mg/dL Lactate < 0.5 L (0.7-2.1) mmol/L Calcium (8.4-10.2) mg/dL Total Bilirubin (0.2-1.3) mg/dL AST (14-36) IU/L ALT (9-52) IU/L Alkaline Phosphatase (38-126) U/L Total Protein (6.3-8.2) g/dL Albumin (3.5-5.0) g/dL Globulin (1.7-4.1) g/dL Albumin/Globulin Ratio (1.0-2.8) Lipase (23-300) U/L Procalcitonin (<0.5) ng/mL Urine RBC 5-10/hpf H (0-5/HPF) Urine WBC 0-1/hpf (0-5/HPF) Ur Squamous Epith Cells 1-5 /hpf Urine Bacteria Few (2-10) H (None) Ur Culture Indicated? Cult not indicated Micro UA Comment Not Reportable Point of care testing: Urine Dip Bedside Urine Glucose Negative Bedside Urine Bilirubin - Negative Bedside Urine Ketone +/- 5 Urine Specific Axis 1.030 Bedside Urine Occult Blood ++ Bedside Urine pH 6.0 Bedside Urine Protein - Negative Bedside Urine Urobilinogen - Negative Bedside Urine Nitrite - Negative Bedside Urine Leukocytes - Negative Esterase Discharge Plan Departure Patient Disposition: Home Clinical Impression: Diverticulitis large intestine Discharge Date/Time: 09/23/18 17:16 Interventions: ED Discharge Assessment Last Done: 09/23/18 17:14 Instructions: Diverticulitis Activity Restrictions/Additional Instructions: ultrasound of the abdomen shows a polyp to the gallbladder and a hemangioma to the left lobe of the liver otherwise no acute findings are seen. These will need to be further evaluated to ensure they are stable. CT of the abdomen shows diverticulitis which is infection of the descending colon. You have been placed on antibiotics use as directed. Clear liquid diet and till cleared by surgery. Follow up with primary care provider in the next couple days for re- evaluation. Follow up with surgery office next week. CT also shows a cyst to the right kidney area that will need to be further evaluated as well. You will need to have a CT of the kidneys. colonoscopy will be needed here in in the near future for further evaluation as well. [place] is prescribed for pain and use as directed. Zofran is prescribed for nausea also use as directed. No driving while on the pain medication. use nicotine patches as directed to help with smoking cessation. Prescriptions: New hydrocodone-acetaminophen 5-325 mg tablet 1 tab PO Q4-6H PRN (Reason: pain) Qty: 15 RF: 0 metronidazole 500 mg tablet 500 mg PO TID Qty: 21 RF: 0 ciprofloxacin HCl 500 mg tablet 500 mg PO BID Qty: 14 RF: 0 ondansetron 4 mg tablet,disintegrating 4 mg PO Q6-8H PRN (Reason: nausea and vomiting) Qty: 10 RF: 0 nicotine 21-14-7 mg/24 hr patch, TD daily, sequential 1 patch Transdermal DAILY Qty: 56 RF: 0 No Action aspirin 81 MG tablet,delayed release (DR/EC) 81 mg PO QDAY Qty: 0 RF: 0 estradiol [[place]] 0.05 mg/24 hr patch weekly 1 patch Topical QWEEK Qty: 12 RF: 3 simvastatin 10 MG tablet 10 mg PO QPM RF: 0 multivitamin Tablet 1 tab PO DAILY RF: 0 glucosamine zeng 2KCl-chondroit [Glucosamine Sulf-Chondroitin] 500-400 mg Capsule 1 dose PO DAILY RF: 0 Fish Oil 1 dose PO DAILY RF: 0 Referrals: [facility] [Provider Group] Sammy Ruiz MD [Primary Care Provider] - <Taiwo Canales DO - Last Filed: 09/27/18 07:12> Cosign ED Attending Cosignature Attestation: I was available for consultation during this patient's emergency department encounter
[2018-09-23 14:24] VITALS: BP 126/93; PULSE 81; RESP 16
[2018-09-23 14:28] LABS: Add Manual Diff / Slide Review NO; Basophils Percent Auto 0.8 % (0-2); Hematocrit 44.1 % (36-46); Lymphocytes Percent Auto 30.7 % (25-40); Mean Corpuscular HGB Conc 33.9 % (30-36); Mean Corpuscular Hemoglobin 30.6 PG (26-34); Mean Corpuscular Volume 90.1 fL (80-100); Monocytes Percent Auto 4.9 % (3-14); Neutrophils Absolute Auto 6100 /uL (3000-5900); Neutrophils Percent Auto 61.6 % (50-75); Platelet Count 321 X10^3/uL (150-400); Red Cell Distribution Width 12.3 % (11.6-14.8); White Blood Cell Count 9.9 X10^3/uL (4.5-11.0)
[2018-09-23] MEDS: HYDROMORPHONE 1 MG INJ 0.5 MG IV (14:39)
[2018-09-23] MEDS: SODIUM CHLORIDE 0.9% 1,000 ML 150 ML IV (14:39)
[2018-09-23 14:40] LABS: Alanine Aminotransferase 26 IU/L (9-52); Albumin 4.4 g/dL (3.5-5.0); Albumin Globulin Ratio 1.4 (1.0-2.8); Alkaline Phosphatase 69 U/L (38-126); Aspartate Aminotransferase 27 IU/L (14-36); BUN Creatinine Ratio 23.3 (6-22); Bilirubin Total 0.4 mg/dL (0.2-1.3); Blood Urea Nitrogen 14 mg/dL (7-17); Calcium 9.2 mg/dL (8.4-10.2); Carbon Dioxide 29 mmol/L (22-32); Chloride 104 mmol/L (98-107); Estimated Glomerular Filt Rate > 60.0 mL/min (>60); Globulin 3.1 g/dL (1.7-4.1); Glucose 89 mg/dL (70-100); HEMOLYSIS < 15 (0-50); Lipase 47 U/L (23-300); Potassium 4.1 mmol/L (3.4-5.1); Sodium 144 mmol/L (137-145); Total Protein 7.5 g/dL (6.3-8.2)
[2018-09-23] MEDS: ONDANSETRON 4 MG/2 ML INJ IV (14:40)
[2018-09-23] MEDS: PIPERACILLIN-TAZO 3.375 GM/50 ML FROZ.PIGGY IV (15:51)
[2018-09-23 16:15] LABS: Bacteria Urine Few (2-10); Culture Indicated Urine Cult Not Indicated; RBC Urine 5-10/HPF (0-5/HPF); Squamous Epithelial Cell Urine 1-5 /HPF; WBC Urine 0-1/HPF (0-5/HPF)
[2018-09-23 16:21] LABS: Lactate (Lactic Acid) < 0.5 mmol/L (0.7-2.1)
[2018-09-23 16:31] LABS: Procalcitonin < 0.05 ng/mL (<0.5)
[2018-09-23 16:49] VITALS: BP 112/82; PULSE 79; RESP 16; O2SAT 100
--- NOTE | 2018-09-24 10:45 | PC.NURSE ---
late entry;; 09/23/18 at 1715, iv infused 610ml, pt dc home, no ill effect.
== END 2018-09-23 17:16 | disposition home or self-care (01) ==
PROVIDERS: Emergency Provider Nurse Practitioner Family; PCP Family Medicine
DX: K57.32 Diverticulitis of large intestine without perforation or abscess without bleeding (principal)
CPT/HCPCS: 74177; 76700; 80053; 81003; 81015; 83605; 83690; 84145; 85025; 96361; 96365; 96375; 99283; 99285; J1170; J2405; J2543; Q9967

== ENCOUNTER → 2018-10-23 07:48 | Outpatient (CLI) | payer OTHER, SELFPAY ==
--- NOTE | 2018-10-23 | DI.CT.S_ITS ---
PROCEDURE: CT ABDOMEN WWO PELVIS W INDICATIONS: RENAL MASS TECHNIQUE: After the administration of oral contrast, 5 mm thick sections acquired from the diaphragms to the iliac crests. After the administration of intravenous contrast, 5 mm thick sections acquired from the diaphragms to the symphysis. 5 mm thick coronal and sagittal reformats were acquired. For radiation dose reduction, the following was used: automated exposure control, adjustment of mA and/or kV according to patient size. COMPARISON: [facility], CT, CT ABDOMEN PELVIS W CON, 09/23/2018, 14:48. [facility], US, US ABDOMEN COMPLETE, 09/23/2018, 13:30. FINDINGS: Image quality: Excellent. ABDOMEN: Lung bases: Lung bases are clear. Heart size is normal. Solid organs: There is redemonstration of a 1.7 cm oval lesion demonstrating peripheral nodular enhancement consistent with a hemangioma in the superior aspect of the left hepatic lobe boyfriend likely within hepatic segment 4A); this is stable in size to comparison exam. There is focal fatty infiltration adjacent to the falciform ligament. Liver is otherwise normal in size and enhancement. Gallbladder is unremarkable. Biliary system is non-dilated. Pancreas enhances normally. Spleen is normal in size and enhancement. No adrenal nodules. Both kidneys are normal in size. No hydronephrosis or nephrolithiasis. There are bilateral renal cysts, measuring up to 5.7 cm on the right and 4.4 cm on the left. Previously noted 1.3 cm irregularly marginated centrally cystic lesion with questionable peripheral nodular enhancement in the inferior pole of the right kidney is unchanged in size and appearance from comparison exam, demonstrates no significant contrast enhancement on the arterial phase sequence of this exam. Bowel and peritoneum: Stomach, small and large bowel loops are normal in caliber and wall thickness. There is diffuse colonic diverticulosis with no evidence of acute diverticulitis. Previously noted sigmoid pericolonic inflammatory changes are no longer seen. No pericolonic abscess is identified. No free fluid or air. Normal appendix best seen on axial image 42 of series 5. Nodes and vessels: No retroperitoneal or mesenteric adenopathy by size criteria. Aorta and inferior vena are normal in caliber. There is wbej-tq-[id number] calcified plaque of the abdominal aorta and branch vessels. Miscellaneous: No ventral hernias. PELVIS: Genitourinary: Bladder wall thickness is normal. Miscellaneous: No inguinal hernias or adenopathy. Bones: No suspicious bony lesions. No vertebral body compression fractures. There are mild multilevel degenerative changes of the lumbar spine. There are mild anterior bilateral sacroiliac joint degenerative changes as well. IMPRESSION: #1. Interval resolution of previously noted acute diverticulitis. No pericolonic abscess is identified. Consider colonoscopy if patient symptoms have resolved to ensure there is no underlying colonic neoplasm, if not recently performed. #2. 1.3 cm irregularly marginated renal cyst in the inferior pole of the right kidney demonstrates no arterial-phase contrast enhancement. Malignancy is thought less likely but not excluded. A followup CT of the abdomen and pelvis in 6 months is recommended to demonstrate stability. #3. 1.7 cm probable hepatic hemangioma is stable in appearance to prior exams. This can also be reevaluated on the followup CT recommended above. Dictated by: Junior Gallegos M.D. on 10/23/2018 at 13:22 Approved by: Junior Gallegos M.D. on 10/23/2018 at 14:18
== END ==
PROVIDERS: Family Provider Specialist; PCP Family Medicine; Visit Provider Specialist
DX: N28.89 Other specified disorders of kidney and ureter (principal); N28.1 Cyst of kidney, acquired; K57.90 Diverticulosis of intestine, part unspecified, without perforation or abscess without bleeding; I70.0 Atherosclerosis of aorta; M47.816 Spondylosis without myelopathy or radiculopathy, lumbar region; M47.818 Spondylosis without myelopathy or radiculopathy, sacral and sacrococcygeal region; Z87.39 Personal history of other diseases of the musculoskeletal system and connective tissue
CPT/HCPCS: 74178; 77080; Q9967

== ENCOUNTER 2018-10-29 06:46 | Day surgery (SDC) | payer OTHER, SELFPAY ==
[2018-10-21 15:25] VITALS: BMI 29.2
[2018-10-29] VITALS (10 sets, daily range): BP systolic 111–151; BP diastolic 86–98; PULSE 68–76; RESP 14–18; TEMP 36.1–36.4; O2SAT 94–100; BMI 25.2
--- NOTE | 2018-10-29 | PATH_ITS ---
[facility] Accession Number: [id number] . 01 Material submitted: . GALLBLADDER WITH CONTENTS . 02 Diagnosis: Gallbladder, Cholecystectomy: Chronic cholecystitis with cholelithiasis. No evidence of dysplasia or malignancy. [facility]/11/02/2018 . 02 Electronically signed: . Janie Alberto MD, Pathologist NPI- [id number] . 01 Gross description: . Received in formalin, labeled gallbladder with contents, is an intact gallbladder (length-6.2 cm, diameter-2.7 cm) with vo-purple smooth and shiny serosa and a patent cystic duct. No lymph nodes are identified. The lumen contains dark green gelatinous bile and multiple fragments of green soft tissue (0.7 x 0.2 x 0.1 cm in aggregate) and one benitez possible calculi (0.1 x 0.1 x 0.1 cm). The mucosa is dark green and velvety. The wall is up to 0.1 cm thick. No nodules, masses or lesions are identified. Section code: (A1) cystic duct resection margin and two serial sections from the body; (A2) two longitudinal sections from the fundus. ([id number]) /[facility] . 02 Pathologist provided ICD-10: K80.60 . 02 CPT . 279958 Performed at: 01 [facility] [address] [facility], [place], [place] [id number] MD Buster Alford MD Phone: [phone] Performed at: 02 [facility] [address] [place], [place] [id number] MD Janie Alberto MD Phone: [phone]
[2018-10-29] MEDS: LACTATED RINGERS 1,000 ML 42 ML IV (07:28)
--- NOTE | 2018-10-29 08:11 | PM.PREOP ---
Pre-operative Note Interval Note Pre-op Check: Yes History & Physical Reviewed by Physician and Yes Exam Performed Changes: No
--- NOTE | 2018-10-29 09:01 | SUR.OPER ---
Supine on padded OR bed, head on pillow, arms secured on padded arm boards at <90 degrees abduction, legs uncrossed, safety belt at thigh, tape over blanket over lower legs.
[2018-10-29] MEDS: BUPIVACAINE 0.5% (PF) VIAL 30 ML INJ (09:05)
[2018-10-29] MEDS: CEFAZOLIN 1 GM VIAL 2 GM IV (10:25)
--- NOTE | 2018-10-29 10:48 | PM.OP.1 ---
Operative Date/Time/Diagnoses Date of procedure: 10/29/18 Time of procedure: 10:30 Pre-op diagnosis: Cholelithiasis cholecystitis. History of diverticulitis. Post-op diagnosis: same Procedure & Clinicians Procedure: Laparoscopic cholecystectomy. Intraoperative colonoscopy. Same procedure as scheduled: Yes Indications: Symptomatic gallbladder disease. Rule out tumor of the sigmoid due to findings on CT. Surgeon: Rashawn Iraheta Click Yes if Unassisted: Yes Anesthesia Type: General Operative Notes Findings: Extensive diverticulosis with mild narrowing of the sigmoid. No active inflammation. No polyps. Fairly normal appearing gallbladder with some adhesions to its surface of omentum. Closure Type: primary Specimen(s): other (Gallbladder and contents) Implants & Drains: None Estimated Blood Loss (mL): 5 Blood products transfused: none Procedure in detail: The patient was placed supine on the operating room table and underwent general endotracheal anesthesia. There prepped and draped in the usual fashion. Local anesthetic was infiltrated beneath the umbilicus and an incision made in the infraumbilical fold. It was carried down to the level of the peritoneum which was opened under direct vision. Stay sutures of 0 Polysorb were placed in the fascia. An Lelo cannula was inserted and the abdomen was insufflated. The patient was repositioned and local anesthetic was infiltrated again beneath the right costal margin and 3 small 5 mm ports were inserted. The gallbladder was identified and grasped and elevated. There were adhesions of omentum to it surface which were taken down with cautery. The end of the gallbladder was identified. The cystic duct was from surrounding structures as was the artery. Three clips were placed across both and they were divided leaving 2 in the patient. There was a small side vessel that required clipping as there was a slow ooze of blood. The gallbladder is then dissected from its bed in the liver. It was detached and removed without difficulty through the umbilical port. There were some adhesions of omentum to the anterior abdominal wall near the insertion site of the Lelo and these were taken down to make sure there was no problem that area. There were additionally adhesions to the anterior abdominal wall of omentum that was extensive inferior to this and these were left in place. The right upper quadrant irrigated and suctioned free of fluid. The ports were all removed. Stay sutures at the umbilicus were tied and 1 additional suture was placed between the other 2. The wounds were irrigated. Four 0 Vicryl subcuticular stitches were used to close the skin along with Steri-Strips and Band-Aids. Colonoscope was then inserted into the rectum after digital exam was performed. The scope was advanced through the rectum into the sigmoid where encountered some narrowing in tortuosity and extensive diverticulosis. There was no real inflammation though. The scope was passed through into the descending and transverse colon. A stiffener was inserted and pressure was applied and we made our way in the ascending colon and cecum. The cecum was identified by the ileocecal valve the appendiceal opening. The scope was gradually brought out. I could identified no mucosal lesions going in or out except for the diverticulosis. It was really piper colonic in nature. The scope was retroflexed in the rectum and the patient was noted to have some small internal hemorrhoids. The scope was removed and the patient tolerated both procedures well. She was extubated taken to recovery room good condition. Repeat colonoscopy for screening purposes in 10 years. Complications: none Condition: stable Disposition: PACU Plan for aftercare: Follow-up the office
[2018-10-29] MEDS: fentaNYL 100 MCG/2 ML INJ 25 MCG IV ×4 (10:58→11:13)
[2018-10-29] MEDS: HYDROMORPHONE 2 MG INJ 0.5 MG IV (11:15)
[2018-10-29] MEDS: ONDANSETRON 4 MG/2 ML INJ IV (11:37)
[2018-10-29] MEDS: OXYCODONE/ACETAMINOPHEN 5/325 TABLET 1 TAB PO (11:56)
--- NOTE | 2018-10-29 13:44 | SUR.PHASEII ---
Pt anxious to d/c. Medicated for nausea with good improvement. Medicated with Percocet for pain. Pt reported having tolerated Percocet in the past. Abd bandaids cdi.
== END 2018-10-29 12:07 | disposition home or self-care (01) ==
PROVIDERS: Family Provider Specialist; PCP Family Medicine; Visit Provider Specialist
PROC: 0FT44ZZ Resection of Gallbladder, Percutaneous Endoscopic Approach (ICD-10-PCS; CPT 47562; principal; 2018-10-29 07:45)
PROC: 0DJD8ZZ Inspection of Lower Intestinal Tract, Via Natural or Artificial Opening Endoscopic (ICD-10-PCS; CPT 45378; 2018-10-29 07:45)
DX: K80.10 Calculus of gallbladder with chronic cholecystitis without obstruction (principal); K57.30 Diverticulosis of large intestine without perforation or abscess without bleeding; K66.0 Peritoneal adhesions (postprocedural) (postinfection); Z87.19 Personal history of other diseases of the digestive system; R93.5 Abnormal findings on diagnostic imaging of other abdominal regions, including retroperitoneum
CPT/HCPCS: 47562; 45378; J0690; J1100; J1170; J2405; J2704; J3010

== ENCOUNTER → 2019-04-19 07:45 | Outpatient (CLI) | payer OTHER, SELFPAY ==
--- NOTE | 2019-04-19 08:21 | DI.CT.S_ITS ---
PROCEDURE: CT ABDOMEN PELVIS W CON INDICATIONS: Other specified disorders of kidney and ureter TECHNIQUE: After the administration of oral and intravenous contrast, 5 mm thick sections acquired from the diaphragms to the symphysis. 5 mm thick coronal and sagittal reformats were performed. For radiation dose reduction, the following was used: automated exposure control, adjustment of mA and/or kV according to patient size. COMPARISON: [facility], CT, CT ABDOMEN PELVIS W CON, 09/23/2018, 14:48. [facility], CT, ABDOMEN/PELVIS WITH CONTRAST, 12/16/2014, 9:41. FINDINGS: Image quality: Excellent. ABDOMEN: Lung bases: Lung bases are clear. Heart size is normal. Solid organs: Liver is normal in size and enhancement. Gallbladder has been previously resected. Biliary system is non-dilated. Pancreas enhances normally. Spleen is normal in size and enhancement. No adrenal nodules. Kidneys are normal in size and enhancement, without hydronephrosis. The previously present bilateral simple appearing renal cortical cysts are present, the largest of which is exophytic from the upper pole the right kidney measuring up to 5.8 cm. More inferiorly within the right kidney a cyst previously thought to have possible irregular margination is seen to abut the corresponding medullary pyramid as cosmetic appearance, and internal complexity is not suspected at this time. Peritoneum and bowel: Stomach, small bowel, and colon loops are normal in caliber and wall thickness. No free fluid or air. Nodes and vessels: No retroperitoneal or mesenteric adenopathy. Aorta and inferior vena cava are normal in caliber. Miscellaneous: No ventral hernias. PELVIS: Genitourinary: Bladder wall thickness is normal. Miscellaneous: No inguinal hernias or adenopathy. Resolution of acute diverticulitis the previously identified, extensive sigmoid diverticulosis is again seen. Bones: No suspicious bony lesions. No vertebral body compression fractures. IMPRESSION: 1. Resolution of midline low pelvis acute diverticulitis with a small peridiverticular abscess completely resolved. Persistent extensive sigmoid diverticulosis. 2. The kidneys bilaterally are free of solid mass lesion, and renal cortical cysts previously present each appear simple in character at this time. Specifically, at the right lower kidney a cyst previously present measuring 1.3 cm does not demonstrate nodularity at the at its inferior margin. It does abut an adjacent medullary pyramid with expected appearance given that finding. No followup is recommended. Dictated by: Maciel Alberto M.D. on 04/19/2019 at 11:32 Approved by: Maciel Alberto M.D. on 04/19/2019 at 11:36
== END ==
PROVIDERS: Family Provider Specialist; PCP Family Medicine; Visit Provider Family Medicine
DX: N28.89 Other specified disorders of kidney and ureter (principal); N28.1 Cyst of kidney, acquired; K57.30 Diverticulosis of large intestine without perforation or abscess without bleeding
CPT/HCPCS: 74177; Q9967

== ENCOUNTER 2019-11-24 11:34 | Emergency (ER) | payer OTHER, SELFPAY ==
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
[2019-11-24 11:54] VITALS: BP 141/93; PULSE 81; RESP 18; TEMP 36.4; O2SAT 98; BMI 29.2
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
[2019-11-24] MEDS: ACETAMINOPHEN 325 MG TABLET 650 MG PO (12:15)
[2019-11-24] MEDS: KETOROLAC 60 MG/2 ML VIAL 30 MG IM (12:15)
[2019-11-24 13:20] VITALS: BP 128/94; PULSE 77; RESP 19; O2SAT 100
--- NOTE | 2019-11-24 13:20 | DI.CT.S_ITS ---
PROCEDURE: CT PEL WO CON INDICATIONS: possible sacral zone 1 fracture TECHNIQUE: Noncontrast 3 mm axial sections acquired through the bony pelvis, with coronal and sagittal reformatting. COMPARISON: [facility], CR, XR LUMBAR SPINE 2-3V, 11/24/2019, 11:56. [facility], CT, CT ABDOMEN PELVIS W CON, 04/19/2019, 8:49. [facility], CT, CT ABDOMEN PELVIS W CON, 09/23/2018, 14:48. [facility], CT, ABDOMEN/PELVIS WITH CONTRAST, 12/16/2014, 9:41. FINDINGS: Image quality: Diagnostic. Bones: There is a anterior cortical buckle fracture evident involving the S3 sacral segment that is nondisplaced and is not significantly propagated into the neural foramina or involve the posterior elements. No fracture lines are evident along the sacral ala to correlate with the appearance on the conventional radiograph. However, moderate degenerative changes of the bilateral sacroiliac joints are present with associated sclerosis. No suspicious osseous lesions are identified. The remainder of the image osseous structures are age-appropriate and otherwise unremarkable. Soft tissues: The included soft tissues of the pelvis are essentially unremarkable. Imaged bowel loops are nondilated. Distal colonic diverticulosis is evident without surrounding inflammation identified. No free fluid or loculated fluid collection is present within the pelvis. There is no free air. The uterus is surgically absent. The ovaries are not definitely seen and may either be atrophic or have been surgically removed. Aortic and iliac artery atherosclerosis is present without evidence of aneurysm on the provided images. No pelvic adenopathy is evident. There are no inguinal hernias. Nonspecific edema is evident overlying the left suprapubic region within the subcutaneous tissues. This likely is related to recent soft tissue injury. There is no associated fluid collection. IMPRESSION: Nondisplaced fracture involving the S3 sacral segment without involvement of the neural foramina or posterior elements. There is no extension into the sacroiliac joints. Dictated by: Todd Olson M.D. on 11/24/2019 at 13:05 Approved by: Todd Olson M.D. on 11/24/2019 at 13:21
[2019-11-24 15:38] VITALS: BP 120/80; PULSE 78; RESP 18; O2SAT 98
== END 2019-11-24 15:40 | disposition home or self-care (01) ==
PROVIDERS: Emergency Provider Nurse Practitioner Family; Family Provider Specialist; PCP Family Medicine
DX: S32.110A Nondisplaced Zone I fracture of sacrum, initial encounter for closed fracture (principal); V86.52XA Driver of snowmobile injured in nontraffic accident, initial encounter
CPT/HCPCS: 72100; 72192; 96372; 99284; J1885

== ENCOUNTER → 2020-10-04 08:31 | Oncology outpatient (ONC) | payer OTHER, SELFPAY ==
[2020-10-04 08:49] VITALS: BP 120/75; PULSE 76; RESP 16; TEMP 36.6; O2SAT 97
[2020-10-04] MEDS: ZOLEDRONIC ACID 5 MG in SODIUM CHLORIDE 0.9% 100 ML 425 ML IV (09:30)
== END ==
LOC: ONC 08:34
PROVIDERS: Family Provider Specialist; PCP Family Medicine; Referring Provider Family Medicine; Visit Provider Specialist
DX: M81.8 Other osteoporosis without current pathological fracture (principal)
CPT/HCPCS: 96365; J3489

== ENCOUNTER → 2021-06-06 13:39 | Outpatient (CLI) | payer OTHER, SELFPAY ==
--- NOTE | 2021-06-06 | DI.MRI.S_ITS ---
PROCEDURE: MR HUMERUS RT WO/W CON INDICATIONS: Unspecified acquired deformity of right upper arm TECHNIQUE: Noncontrast coronal T1 spin echo and STIR, sagittal T1 spin echo with fat saturation and STIR, axial T1 spin echo and T2 fast spin echo with fat saturation. After the administration of contrast, axial/sagittal/coronal T1 spin echo with fat saturation through the right upper arm. COMPARISON: None. FINDINGS: Image quality: Excellent. Bones: There is no marrow edema. No fracture or dislocation . Osteoarthritic changes are noted in glenohumeral joint. Nonspecific subcortical cyst formation in posterior lateral humeral head near rotator cuff tendon insertion are seen. No suspicious intraosseous lesion. No abnormal intraosseous enhancement. Soft tissues: Focal area of T1 isointense and T2 hypointense signal seen within anterior and lateral portion of proximal biceps muscle near musculotendinous junction and show no contrast enhancement within this structure. Edema within proximal portion of the biceps muscle is also seen and show mild contrast enhancement. There is no other muscle or soft tissue signal abnormality. No area of abnormal enhancement. IMPRESSION: 1. Finding is concerning for focal torn and distally retracted proximal biceps tendon extending to involve musculotendinous junction and proximal portion of biceps muscle. Clinical correlation is recommended. 2. No discrete enhancing soft tissue mass or abnormal fluid collection is seen. 3. 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 No fracture or dislocation. No suspicious bony lesion or abnormal intraosseous enhancement. Dictated by: Jem Granados M.D. on 06/06/2021 at 15:23 Approved by: Jem Granados M.D. on 06/06/2021 at 15:51
== END ==
PROVIDERS: Family Provider Specialist; PCP Family Medicine; Referring Provider Nurse Practitioner Family; Visit Provider Nurse Practitioner Family
DX: M21.921 Unspecified acquired deformity of right upper arm (principal)
CPT/HCPCS: 73218